=== PATIENT | female | born 1975 | race Caucasian/White ===

== ENCOUNTER 2020-12-20 10:40 | Outpatient (CLI) | payer BC | END 2020-12-20 10:41 | disposition home or self-care (01) | LOC: TBSIIMAG 10:40 | PROVIDERS: ATTEND Orthopaedic Surgery | DX: M70.42 Prepatellar bursitis, left knee (principal); M17.12 Unilateral primary osteoarthritis, left knee; M70.52 Other bursitis of knee, left knee; S83.242A Other tear of medial meniscus, current injury, left knee, initial encounter; M71.22 Synovial cyst of popliteal space [Baker], left knee; M22.2X2 Patellofemoral disorders, left knee ==

== ENCOUNTER 2021-03-29 11:42 | Outpatient (CLI) | payer BC ==
[2021-03-29 14:55] LABS: INR-International Normal Ratio 0.9; Prothrombin Time 10.2 sec (9.5-12.1)
[2021-03-29 15:08] LABS: Anion Gap 13 mmol/L (10-20); BUN (Urea Nitrogen) 10 mg/dL (7.0-18.7); Calc. Creatinine Clearance 0 mL/min (70-130); Calcium 9.2 mg/dL (7.8-10.44); Carbon Dioxide 28 mmol/L (22-29); Chloride 102 mmol/L (98-107); Glucose 124 mg/dL (70-105); Potassium 4.8 mmol/L (3.5-5.1); Sodium 138 mmol/L (136-145)
[2021-03-29 15:09] LABS: #Eosinphils 0.1 10x3/uL (0.0-0.5); #Monocytes 0.5 10x3/uL (0.0-1.1); #Neutrophils 4.2 10x3/uL (1.5-8.4); %Basophils 0.3 % (0.0-2.0); %Eosinophils 0.7 % (0.0-6.0); %Lymphocytes 29.2 % (18.0-47.0); %Monocytes 7.6 % (0.0-10.0); %Neutrophils 61.9 % (40.0-75.0); Hemoglobin 11.5 g/dL (12.0-15.5); Mean Corpuscular HGB CONC 31.9 g/dL (32.0-36.0); Mean Corpuscular Hemoglobin 27.7 pg (27.0-33.0); Mean Corpuscular Volume 86.7 fl (81.6-98.3); Mean Platelet Volume 11.5 fl (7.4-10.4); Platelet Count 564 10x3/uL (150-450); Red Blood Cell (RBC) Count 4.15 10x6/uL (3.90-5.03); White Blood Cell (WBC) Count 6.7 10x3/uL (3.5-10.5)
== END 2021-03-29 11:43 | disposition home or self-care (01) ==
LOC: LABBT 11:42
PROVIDERS: ATTEND Orthopaedic Surgery
DX: Z01.812 Encounter for preprocedural laboratory examination (principal); M17.12 Unilateral primary osteoarthritis, left knee
CPT/HCPCS: 80048; 85025; 85610; 87081

== ENCOUNTER 2022-06-19 09:25 | Outpatient (CLI) | payer BC | END 2022-06-19 09:26 | disposition home or self-care (01) | LOC: TBSIIMAG 09:25 | PROVIDERS: ATTEND Orthopaedic Surgery | DX: M17.11 Unilateral primary osteoarthritis, right knee (principal); M23.91 Unspecified internal derangement of right knee; R60.0 Localized edema ==

== ENCOUNTER 2022-07-18 13:00 | Outpatient (CLI) | payer BC ==
[2022-07-18 13:40] LABS: #Eosinphils 0.1 10x3/uL (0.0-0.5); #Monocytes 0.5 10x3/uL (0.0-1.1); #Neutrophils 3.9 10x3/uL (1.5-8.4); %Basophils 0.4 % (0.0-2.0); %Eosinophils 0.7 % (0.0-6.0); %Lymphocytes 33.7 % (18.0-47.0); %Monocytes 7.6 % (0.0-10.0); %Neutrophils 57.5 % (40.0-75.0); Hemoglobin 11.9 g/dL (12.0-15.5); Mean Corpuscular HGB CONC 32.8 g/dL (32.0-36.0); Mean Corpuscular Hemoglobin 27.9 pg (27.0-33.0); Mean Platelet Volume 9.8 fl (7.4-10.4); Platelet Count 344 10x3/uL (150-450); RBC Distribution Width 14.2 % (11.5-14.5); Red Blood Cell (RBC) Count 4.27 10x6/uL (3.90-5.03); White Blood Cell (WBC) Count 6.9 10x3/uL (3.5-10.5)
[2022-07-18 14:03] LABS: Anion Gap 15 mmol/L (10-20); BUN (Urea Nitrogen) 8 mg/dL (7.0-18.7); Calc. Creatinine Clearance 0 mL/min (70-130); Calcium 8.7 mg/dL (7.8-10.44); Carbon Dioxide 24 mmol/L (22-29); Chloride 103 mmol/L (98-107); Estimated GFR 107; Glucose 102 mg/dL (70-105); Potassium 4.3 mmol/L (3.5-5.1); Sodium 138 mmol/L (136-145)
[2022-07-18 14:14] LABS: INR-International Normal Ratio 0.9; Prothrombin Time 10.1 sec (9.5-12.1)
== END 2022-07-18 13:01 | disposition home or self-care (01) ==
LOC: LABBT 13:00
PROVIDERS: ATTEND Orthopaedic Surgery
DX: Z01.812 Encounter for preprocedural laboratory examination (principal); M17.11 Unilateral primary osteoarthritis, right knee
CPT/HCPCS: 80048; 85025; 85610; 87081

== ENCOUNTER 2022-07-23 07:02 | Inpatient (IN) | payer BC ==
[2022-07-22 12:27] VITALS: BMI 35.4
[2022-07-23] MEDS ORDERED: Sodium Chloride 0.9% 100 ML ONE ×2 (07:38→09:35)
[2022-07-23] MEDS ORDERED: Tranexamic Acid 1,000 MG/10 ML VIAL ONE (07:38)
[2022-07-23] MEDS ORDERED: Vancomycin (BATCH) 1.5 GRAM/300 ML BAG ONE (07:38)
[2022-07-23] MEDS ORDERED: FENTANYL 50 MCG/ML 1 ML VIAL ONE ×2 (08:11→13:15)
[2022-07-23] MEDS ORDERED: Ropivacaine 0.5% HCl/PF (150 MG/30 ML VIAL) ONE (08:11)
[2022-07-23] MEDS ORDERED: Midazolam HCl 2 mg/2 ml Vial ONE (08:11)
[2022-07-23 08:13] LABS: SARS-CoV-2 NAA Rapid Test Not Detected (NotDetected)
[2022-07-23] MEDS ORDERED: Acetaminophen 325 MG TAB PO PRN (09:30)
[2022-07-23] MEDS ORDERED: Zolpidem Tartrate 5 MG TAB PO PRN (09:30)
[2022-07-23] MEDS: Sodium Chloride 0.9% 1,000 ML IV SCH ×2 (09:30→21:46)
[2022-07-23] MEDS ORDERED: diphenhydrAMINE 25 MG CAP PO PRN (09:30)
[2022-07-23] MEDS ORDERED: CEFAZOLIN 2 GM VIAL ONE (09:35)
[2022-07-23] MEDS ORDERED: HYDROmorphone 0.5 MG/0.5 ML SYRINGE ONE (09:41)
[2022-07-23] MEDS ORDERED: fentaNYL PF 100 MCG/2 ML SYRINGE ONE (09:41)
[2022-07-23] MEDS ORDERED: Dexamethasone 20 MG/5 ML VIAL ONE (09:48)
[2022-07-23] MEDS ORDERED: Metoclopramide HCl 10 MG/2 ML VIAL ONE (09:48)
[2022-07-23] MEDS ORDERED: PROPOFOL 200 MG/20 ML VIAL ONE (09:48)
[2022-07-23] MEDS ORDERED: FENTANYL 50 MCG/ML 1 ML VIAL SLOW IVP PRN (11:06)
[2022-07-23] MEDS ORDERED: traMADol HCl 50 MG TAB PO PRN ×2 (11:15)
[2022-07-23] MEDS ORDERED: Ropivacaine 0.2% 550 ML 550 ML NERVE BLCK SCH (11:15)
[2022-07-23] MEDS ORDERED: HYDROcodone/Acetaminophen 10/325 mg Tablet PO PRN (11:15)
[2022-07-23] MEDS ORDERED: Promethazine HCl 25 MG/ML VIAL IM PRN (11:39)
[2022-07-23] MEDS ORDERED: Promethazine HCl 25 MG/ML VIAL IVPB PRN (11:39)
[2022-07-23] MEDS ORDERED: Ondansetron HCl/PF 4 MG/2 ML Vial IVP PRN (11:39)
[2022-07-23] MEDS ORDERED: HYDROmorphone 2 MG/ML VIAL SLOW IVP PRN (11:39)
[2022-07-23] MEDS ORDERED: HYDROmorphone 2 MG/ML VIAL ONE (11:41)
[2022-07-23] MEDS ORDERED: Promethazine HCl 25 MG/ML VIAL ONE (16:36)
[2022-07-23] MEDS: CEFAZOLIN 2 GM in Sodium Chloride 0.9% 100 ML IVPB SCH (18:20)
[2022-07-23] MEDS: HYDROcodone/Acetaminophen 10/325 mg Tablet PO PRN (18:25)
[2022-07-23] MEDS: Ondansetron PF 4 MG/2 ML Vial IVP PRN (19:50)
[2022-07-23] MEDS ORDERED: Vancomycin HCl 1.5 GM in Sodium Chloride 0.9% 250 ML 300 ML IVPB SCH (20:00)
[2022-07-23] MEDS: Aspirin 81 mg Enteric Coated Tablet PO SCH (21:43)
[2022-07-23] MEDS: Senokot S 8.6-50 MG TAB PO SCH (21:44)
[2022-07-23] MEDS: Ferrous Gluconate 324 MG TAB PO SCH (21:44)
[2022-07-23] MEDS: Promethazine HCl 25 MG/ML VIAL IM PRN (23:49)
[2022-07-24] MEDS: CEFAZOLIN 2 GM in Sodium Chloride 0.9% 100 ML IVPB SCH (01:47)
[2022-07-24] MEDS: Ondansetron PF 4 MG/2 ML Vial IVP PRN ×2 (01:50→08:44)
[2022-07-24] MEDS: Promethazine HCl 25 MG/ML VIAL IM PRN (04:13)
[2022-07-24] MEDS ORDERED: Metoclopramide HCl 10 MG/2 ML VIAL IVP SCH (05:00)
[2022-07-24] MEDS ORDERED: Ketorolac Tromethamine 30 MG/ML VIAL IVP SCH (05:00)
[2022-07-24] MEDS: Sodium Chloride 0.9% 1,000 ML IV SCH ×2 (05:30→11:25)
[2022-07-24 06:18] LABS: Hemoglobin 10.7 g/dL (12.0-16.0); Mean Corpuscular HGB CONC 31.5 g/dL (32.0-36.0); Mean Corpuscular Hemoglobin 27.9 pg (27.0-31.0); Mean Corpuscular Volume 88.6 fl (78.0-98.0); Mean Platelet Volume 8.8 fL (7.4-10.4); Platelet Count 214 10x3/uL (130-400); RBC Distribution Width 12.4 % (11.5-14.5); Red Blood Cell (RBC) Count 3.83 mill/uL (4.20-5.40); White Blood Cell (WBC) Count 11.6 10x3/uL (4.8-10.8)
[2022-07-24] MEDS: HYDROcodone/Acetaminophen 10/325 mg Tablet PO PRN ×3 (08:43→20:15)
[2022-07-24] MEDS: Senokot S 8.6-50 MG TAB PO SCH ×2 (08:47→20:15)
[2022-07-24] MEDS: Aspirin 81 mg Enteric Coated Tablet PO SCH ×2 (08:47→20:14)
[2022-07-24] MEDS: Ferrous Gluconate 324 MG TAB PO SCH ×2 (08:47→20:15)
[2022-07-24] MEDS: Multivitamin W/ Minerals 1 TAB PO SCH (08:47)
[2022-07-25] MEDS: HYDROcodone/Acetaminophen 10/325 mg Tablet PO PRN ×3 (00:38→11:08)
[2022-07-25] MEDS: Sodium Chloride 0.9% 1,000 ML IV SCH ×2 (01:30→11:24)
[2022-07-25 05:48] LABS: Hemoglobin 9.9 g/dL (12.0-16.0); Mean Corpuscular HGB CONC 31.5 g/dL (32.0-36.0); Mean Corpuscular Hemoglobin 28.3 pg (27.0-31.0); Mean Corpuscular Volume 89.8 fl (78.0-98.0); Mean Platelet Volume 7.7 fL (7.4-10.4); Platelet Count 270 10x3/uL (130-400); RBC Distribution Width 12.5 % (11.5-14.5); Red Blood Cell (RBC) Count 3.48 mill/uL (4.20-5.40); White Blood Cell (WBC) Count 8.3 10x3/uL (4.8-10.8)
[2022-07-25] MEDS: Senokot S 8.6-50 MG TAB PO SCH (07:43)
[2022-07-25] MEDS: Ferrous Gluconate 324 MG TAB PO SCH (07:43)
[2022-07-25] MEDS: Multivitamin W/ Minerals 1 TAB PO SCH (07:43)
[2022-07-25] MEDS: Aspirin 81 mg Enteric Coated Tablet PO SCH (07:43)
[2022-07-25 12:09] VITALS: BP 145/84; TEMP 98.3
== END 2022-07-25 13:15 | disposition home or self-care (01) | DRG 470 ==
LOC: SDC 07:02 → SURG A 17:19 → OBSVTOIN 07-24 09:05
PROVIDERS: ADMIT Orthopaedic Surgery; ATTEND Orthopaedic Surgery
PROC: 0SRC0J9 Replacement of Right Knee Joint with Synthetic Substitute, Cemented, Open Approach (ICD-10-PCS; principal; 2022-07-23)
DX: M17.11 Unilateral primary osteoarthritis, right knee (principal); Z20.822 Contact with and (suspected) exposure to COVID-19; Z96.642 Presence of left artificial hip joint; I10 Essential (primary) hypertension; G43.909 Migraine, unspecified, not intractable, without status migrainosus; Z90.49 Acquired absence of other specified parts of digestive tract; Z90.710 Acquired absence of both cervix and uterus; Z79.899 Other long term (current) drug therapy
CPT/HCPCS: 36415; 85027; 96374; 96375; 96376; A4306; C1713; C1776; G0378; J1100; J1170; J1885; J2250; J2405; J2550; J2704; J2765; J2795; J3010; J3370; J3490; J7050; U0002